=== PATIENT | male | born 1950 | race Two or more races ===

== ENCOUNTER 2022-08-01 17:29 | Inpatient (IN) | payer MEDICARE, MEDICAID ==
[~2022-08-01] VITALS: Ht 185.4 cm; Wt 79.8 kg
[2022-08-01 19:10] LABS: Basophils # (auto) 0.1 10 ^3/uL (0-0.2); Basophils % (auto) 0.8 % (0.0-2.0); Eosinophils # (auto) 0.1 10 ^3/uL (0-0.8); Eosinophils % (auto) 0.7 % (0.0-7.0); Hematocrit 47.4 % (41.0-53.0); Hemoglobin 15.9 g/dL (13.5-17.5); Lymphocytes # (auto) 2.1 10 ^3/uL (0.4-5.4); Lymphocytes % (auto) 18.6 % (10.0-50.0); Mean Corpuscular Hemoglobin 31.9 pg (28.0-32.0); Mean Corpuscular Hgb Conc. 33.6 g/dL (32.0-36.0); Monocytes # (auto) 0.9 10 ^3/uL (0-1.3); Monocytes % (auto) 8.1 % (0.0-12.0); Neutrophils # (auto) 7.9 10 ^3/uL (1.6-8.6); Neutrophils % (auto) 71.8 % (37.0-80.0); Red Blood Cells 4.99 10^6/uL (4.5-5.90); Red Cell Distribution Width 13.2 % (11.8-14.3); White Blood Cell 11.1 10^3/uL (4.4-10.8)
[2022-08-01] MEDS ORDERED: LIDOCAINE VISCOUS 2% 15ML UD PO ONE (19:30)
[2022-08-01] MEDS ORDERED: DONNATAL 5ml ORAL Elix (BELLADONNA ALK-PHENOBARB) PO ONE (19:30)
[2022-08-01] MEDS ORDERED: ALUM & MAG HYDROX-SIMETH LIQ(MAALOX) 30 ML PO ONE (19:30)
[2022-08-01] MEDS ORDERED: SODIUM CHLORIDE 0.9% 1,000 ML IVB ONE (19:30)
[2022-08-01 19:33] LABS: Albumin 3.8 g/dL (3.4-5.0); BUN/Creatinine Ratio 11.9; Calcium 8.9 mg/dL (8.5-10.1); Potassium 3.8 mmol/L (3.5-5.1)
[2022-08-01 19:35] LABS: Bilirubin, Total 0.9 mg/dL (0.2-1.0); Total Protein 8.2 g/dL (6.4-8.2)
[2022-08-01] MEDS ORDERED: SODIUM CHLORIDE 0.9% 1,000 ML IV SCH (22:45)
[2022-08-01] MEDS ORDERED: ONDANSETRON HCL 4 MG/2 ML VIAL IV PRN (22:45)
[2022-08-02 06:08] LABS: Basophils % (auto) 0.1 % (0.0-2.0); Eosinophils % (auto) 0.4 % (0.0-7.0); Lymphocytes % (auto) 19.2 % (10.0-50.0); Monocytes % (auto) 8.9 % (0.0-12.0); Neutrophils % (auto) 71.4 % (37.0-80.0); White Blood Cell 10.9 10^3/uL (4.4-10.8)
[2022-08-02 06:09] LABS: Basophils # (auto) 0 10 ^3/uL (0-0.2); Eosinophils # (auto) 0 10 ^3/uL (0-0.8); Hematocrit 47.1 % (41.0-53.0); Hemoglobin 16.3 g/dL (13.5-17.5); Lymphocytes # (auto) 2.1 10 ^3/uL (0.4-5.4); Mean Corpuscular Hemoglobin 32.9 pg (28.0-32.0); Mean Corpuscular Hgb Conc. 34.6 g/dL (32.0-36.0); Mean Corpuscular Volume 95.3 fL (80.0-100.0); Neutrophils # (auto) 7.8 10 ^3/uL (1.6-8.6); Red Blood Cells 4.94 10^6/uL (4.5-5.90); Red Cell Distribution Width 13.6 % (11.8-14.3)
[2022-08-02 06:10] LABS: Potassium 3.9 mmol/L (3.5-5.1)
[2022-08-02 06:18] LABS: Albumin 3.7 g/dL (3.4-5.0); BUN/Creatinine Ratio 14.2; Calcium 9.1 mg/dL (8.5-10.1)
[2022-08-02 06:23] LABS: Bilirubin, Total 0.8 mg/dL (0.2-1.0)
[2022-08-02] MEDS ORDERED: LOPERAMIDE HCL 2 MG CAP/TAB PO PRN (06:45)
[2022-08-02] MEDS ORDERED: SODIUM CHLORIDE 0.9% 500 ML IV ONE (06:45)
[2022-08-02] MEDS ORDERED: SODIUM CHLORIDE 0.9% 1,000 ML IV SCH (06:45)
[2022-08-02] MEDS: metroNIDAZOLE 500MG/100ML 100 ML IV SCH ×3 (06:59→22:11)
[2022-08-02] MEDS ORDERED: SOD CHL 0.45% 1,000 ML IV SCH (09:15)
[2022-08-02] MEDS ORDERED: GASTROGRAFIN 120 ML SOL ONE (09:40)
[2022-08-02] MEDS: PANTOPRAZOLE 40 MG/10 ML VIAL INJ IV SCH (10:00)
[2022-08-02] MEDS: AMIODARONE 450mg/250ml AE 250 ML IV SCH (10:55)
[2022-08-02] MEDS ORDERED: AMIODARONE HCL 150 MG in D5W 5% 100 ML IV ONE (11:00)
[2022-08-02] MEDS ORDERED: DIGOXIN (250MCG/ML) 2 ML AMPULE IV ONE (11:30)
[2022-08-02 15:11] LABS: Calcium 9.8 mg/dL (8.5-10.1); Potassium 4.2 mmol/L (3.5-5.1)
[2022-08-02 15:13] LABS: BUN/Creatinine Ratio 13.5
[2022-08-02] MEDS: SODIUM BICARBONATE 50ML VIAL 50 ML in SOD CHL 0.45% 1,000 ML IV SCH (15:45)
[2022-08-02] MEDS: MORPHINE SULFATE INJ 2 MG/ml SYRG IV PRN ×2 (17:03→23:47)
[2022-08-02 18:10] LABS: Urine Bacteria MOD /hpf (None Seen); Urine Blood 2+ /uL (Negative); Urine Mucus FEW (None Seen); Urine Specific Gravity 1.015 (1.001-1.035); Urine WBC 10 /hpf (0 - 3)
[2022-08-02 23:00] VITALS: BP 114/75
[2022-08-03] MEDS: AMIODARONE 450mg/250ml AE 250 ML IV SCH ×2 (03:16→16:21)
[2022-08-03] MEDS: MORPHINE SULFATE INJ 2 MG/ml SYRG IV PRN ×2 (04:56→16:11)
[2022-08-03 05:00] VITALS: BP 122/77
[2022-08-03] MEDS: metroNIDAZOLE 500MG/100ML 100 ML IV SCH ×3 (05:34→21:20)
[2022-08-03] MEDS: SODIUM BICARBONATE 50ML VIAL 50 ML in SOD CHL 0.45% 1,000 ML IV SCH ×2 (05:45→08:35)
[2022-08-03 06:36] LABS: BUN/Creatinine Ratio 16.9; Calcium 8.9 mg/dL (8.5-10.1)
[2022-08-03 09:00] VITALS: BP 118/74
[2022-08-03] MEDS: PANTOPRAZOLE 40 MG/10 ML VIAL INJ IV SCH (09:32)
[2022-08-03 13:00] VITALS: BP 134/68
[2022-08-03 16:47] VITALS: BP 122/79
[2022-08-03 21:55] VITALS: BP 110/72
[2022-08-04] MEDS: metroNIDAZOLE 500MG/100ML 100 ML IV SCH ×3 (05:02→21:53)
[2022-08-04 05:12] VITALS: BP 137/74
[2022-08-04 06:29] LABS: BUN/Creatinine Ratio 32.8; Calcium 8.9 mg/dL (8.5-10.1); Potassium 4.1 mmol/L (3.5-5.1)
[2022-08-04] MEDS: AMIODARONE 450mg/250ml AE 250 ML IV SCH (07:55)
[2022-08-04 09:20] VITALS: BP 114/75
[2022-08-04] MEDS: PANTOPRAZOLE 40 MG/10 ML VIAL INJ IV SCH (09:42)
[2022-08-04] MEDS: SODIUM BICARBONATE 50ML VIAL 50 ML in SOD CHL 0.45% 1,000 ML IV SCH ×2 (09:43→23:45)
[2022-08-04 13:00] VITALS: BP 112/72
[2022-08-04] MEDS: MORPHINE SULFATE INJ 2 MG/ml SYRG IV PRN (16:27)
[2022-08-04 16:53] VITALS: BP 118/72
[2022-08-04 22:00] VITALS: BP 128/72
[2022-08-05] MEDS: AMIODARONE 450mg/250ml AE 250 ML IV SCH (04:05)
[2022-08-05 05:00] VITALS: BP 113/68
[2022-08-05] MEDS: metroNIDAZOLE 500MG/100ML 100 ML IV SCH ×3 (06:37→21:27)
[2022-08-05 09:00] VITALS: BP 122/68
[2022-08-05] MEDS: SODIUM BICARBONATE 50ML VIAL 50 ML in SOD CHL 0.45% 1,000 ML IV SCH ×2 (11:07→20:00)
[2022-08-05 13:00] VITALS: BP 114/68
[2022-08-05 17:00] VITALS: BP 116/82
[2022-08-05] MEDS: AMIODARONE HCL 200 MG TAB PO SCH (21:37)
[2022-08-06 00:24] VITALS: BP 108/67
[2022-08-06] MEDS: metroNIDAZOLE 500MG/100ML 100 ML IV SCH (05:20)
[2022-08-06 05:45] VITALS: BP 113/66
[2022-08-06] MEDS: SODIUM BICARBONATE 50ML VIAL 50 ML in SOD CHL 0.45% 1,000 ML IV SCH (05:52)
[2022-08-06 09:05] VITALS: BP 157/108
[2022-08-06] MEDS: AMIODARONE HCL 200 MG TAB PO SCH (09:53)
[2022-08-06] MEDS ORDERED: AMIO200T33 PO (10:32)
[2022-08-06] MEDS ORDERED: METR500T PO (10:32)
== END 2022-08-06 13:22 | disposition home health service (06) | DRG 388 ==
LOC: ER 17:33 → OVERFLOW 22:44 → TELE-WESTW 08-02 21:25
PROVIDERS: ADMIT Nurse Practitioner; ATTEND Family Medicine
PROC: 0D9670Z Drainage of Stomach with Drainage Device, Via Natural or Artificial Opening (ICD-10-PCS; principal; 2022-08-02)
DX: K56.600 Partial intestinal obstruction, unspecified as to cause (principal); R65.11 Systemic inflammatory response syndrome (SIRS) of non-infectious origin with acute organ dysfunction; E87.21 Acute metabolic acidosis; N17.9 Acute kidney failure, unspecified; E86.0 Dehydration; I48.91 Unspecified atrial fibrillation; N18.9 Chronic kidney disease, unspecified; K58.9 Irritable bowel syndrome, unspecified; Z20.822 Contact with and (suspected) exposure to COVID-19
CPT/HCPCS: 36415; 71045; 74018; 74176; 74250; 80048; 80053; 81001; 83605; 83690; 83735; 85025; 85048; 87045; 87177; 87427; 87493; 93005; 93306; 96360; 96361; 97163; C9113; G0378; J2405; J3490; J7060

== ENCOUNTER → 2024-03-19 | Outpatient (CLI) | payer MEDICARE, MEDICAID ==
[~2024-03-19] MED LIST: AMIO200T33 PO; METR500T PO
== END | disposition home or self-care (01) ==
LOC: LAB 13:06
PROVIDERS: ATTEND Urology
DX: R97.20 Elevated prostate specific antigen [PSA] (principal)
CPT/HCPCS: 84153

== ENCOUNTER → 2024-03-20 | Outpatient (CLI) | payer MEDICARE, MEDICAID ==
[2024-03-20 12:24] LABS: Urine Bacteria None Seen /hpf (None Seen); Urine WBC None Seen /hpf (0 - 3)
[2024-03-20 12:52] LABS: Urine Amorphous Crystal MANY /hpf (None Seen); Urine Blood Negative /uL (Negative); Urine Mucus FEW (None Seen); Urine Protein, UAD TRACE (Negative); Urine Specific Gravity 1.024 (1.001-1.035); Urine Urobilinogen Normal (Negative); Urine pH 5.5 (5.0-9.0)
[2024-03-20 12:53] LABS: Urine Clarity Cloudy (Clear); Urine Color Yellow (Yellow)
== END | disposition home or self-care (01) ==
LOC: LAB 12:21
PROVIDERS: ATTEND Urology
DX: N39.0 Urinary tract infection, site not specified (principal)
CPT/HCPCS: 81001

== ENCOUNTER 2024-05-17 08:19 | Day surgery (SDC) | payer OTHER, MEDICAID ==
[2024-05-10 11:58] LABS: Urine Bacteria None Seen /hpf (None Seen)
[2024-05-10 12:15] LABS: Basophils # (auto) 0 10 ^3/uL (0-0.2); Basophils % (auto) 0.4 % (0.0-2.0); Eosinophils # (auto) 0.5 10 ^3/uL (0-0.8); Eosinophils % (auto) 5.7 % (0.0-7.0); Hematocrit 43.8 % (41.0-53.0); Hemoglobin 15.1 g/dL (13.5-17.5); Lymphocytes % (auto) 37.3 % (10.0-50.0); Mean Corpuscular Hemoglobin 33.3 pg (28.0-32.0); Mean Corpuscular Hgb Conc. 34.4 g/dL (32.0-36.0); Mean Corpuscular Volume 96.7 fL (80.0-100.0); Monocytes # (auto) 0.7 10 ^3/uL (0-1.3); Monocytes % (auto) 9.2 % (0.0-12.0); Neutrophils # (auto) 3.8 10 ^3/uL (1.6-8.6); Neutrophils % (auto) 47.4 % (37.0-80.0); Red Blood Cells 4.53 10^6/uL (4.5-5.90); Red Cell Distribution Width 13.6 % (11.8-14.3); Urine Blood Negative /uL (Negative); Urine Clarity Clear (Clear); Urine Color Yellow (Yellow); Urine Mucus FEW (None Seen); Urine Protein, UAD Negative (Negative); Urine Specific Gravity 1.026 (1.001-1.035); Urine Urobilinogen Normal (Negative); Urine WBC 1 /hpf (0 - 3); Urine pH 5.5 (5.0-9.0); White Blood Cell 7.9 10^3/uL (4.4-10.8)
[2024-05-10 12:26] LABS: INR 0.98 (0.9-1.15); Partial Thromboplastin Time 26.5 SEC (24.5-34.5); Prothrombin Time 10.4 sec (9.3-11.8)
[2024-05-10 12:30] LABS: Alanine Aminotransferase 14 U/L (7-40); Albumin 4.4 g/dL (3.2-4.8); Alkaline Phosphatase 80 U/L (46-116); Anion Gap 4 (5-15); Aspartate Aminotransferase 18 U/L (13-40); BUN/Creatinine Ratio 19.7 (10.0-20.0); Blood Urea Nitrogen 23 mg/dL (9-23); Calcium 9.6 mg/dL (8.5-10.1); Carbon Dioxide 25 mmol/L (20-30); Chloride 108 mmol/L (98-107); Glucose 100 mg/dL (74-106); Potassium 4.5 mmol/L (3.5-5.1); Sodium 137 mmol/L (136-145)
[2024-05-10 12:31] LABS: Bilirubin, Total 0.6 mg/dL (0.2-1.0); Total Protein 7.9 g/dL (5.7-8.2)
[~2024-05-17] VITALS: Ht 185.4 cm; Wt 84.4 kg
[~2024-05-17 08:19] MED LIST changes: -AMIO200T33 PO; +BACL20TA PO; +DICY10CA PO; +GABA-1250 PO; +LEVO25CA3 PO; +MESA400C5 PO; -METR500T PO; +PANT40TA2 PO; +SUCR1TAB31 OR; +VALA500T33 PO
[2024-05-17 08:36] VITALS: TEMP 98.4
[2024-05-17] MEDS ORDERED: fentaNYL CITRATE 100 MCG/2 ML VL ONE (09:51)
[2024-05-17] MEDS ORDERED: MIDAZOLAM HCL 2MG/2ML 2ml VIAL (1mg/ml) ONE (09:51)
[2024-05-17] MEDS ORDERED: PROPOFOL 10 MG/ML 20 ML IV ONE ×2 (09:52→10:22)
[2024-05-17] MEDS ORDERED: ONDANSETRON HCL 4 MG/2 ML VIAL ONE (09:52)
[2024-05-17] MEDS ORDERED: LIDOCAINE 2% (LOCAL ANESTH.) PF 5ml SDV ONE (09:52)
[2024-05-17 10:21] VITALS: O2SAT 100
[2024-05-17] MEDS ORDERED: KETAMINE 50mg/ML 1ml syringe ONE (10:21)
[2024-05-17] MEDS ORDERED: ONDANSETRON HCL 4 MG/2 ML VIAL IV ONE (10:30)
[2024-05-17 10:50] VITALS: BP 112/73; PULSE 68; RESP 15; O2SAT 99
== END 2024-05-17 11:40 | disposition home or self-care (01) ==
LOC: GI 08:19
PROVIDERS: ATTEND Internal Medicine Gastroenterology
DX: R19.7 Diarrhea, unspecified (principal); K64.8 Other hemorrhoids; K59.89 Other specified functional intestinal disorders; K29.50 Unspecified chronic gastritis without bleeding; K44.9 Diaphragmatic hernia without obstruction or gangrene; K22.10 Ulcer of esophagus without bleeding; K21.9 Gastro-esophageal reflux disease without esophagitis; K63.89 Other specified diseases of intestine; E03.9 Hypothyroidism, unspecified; J45.909 Unspecified asthma, uncomplicated; Z98.0 Intestinal bypass and anastomosis status; Z90.49 Acquired absence of other specified parts of digestive tract; Z98.890 Other specified postprocedural states
CPT/HCPCS: 36415; 43239; 45380; 80053; 81001; 85025; 85610; 85730; 88305; 88342; J2001; J2250; J2405; J2704; J3010; J7030

== ENCOUNTER 2025-02-04 08:35 | Inpatient (IN) | payer OTHER, MEDICAID ==
[~2025-02-04] VITALS: Ht 165.1 cm; Wt 85.1 kg
[~2025-02-04 08:35] MED LIST changes: +BACL10TA PO; +CHOL4POW33 PO; +GABA-2171 PO
[2025-02-04 09:16] LABS: Urine Bacteria None Seen /hpf (None Seen)
[2025-02-04 09:26] LABS: Urine Blood Negative /uL (Negative); Urine Clarity Clear (Clear); Urine Color Light-Yellow (Yellow); Urine Hyaline Cast FEW /lpf (0 - 2); Urine Mucus FEW (None Seen); Urine Protein, UAD Negative (Negative); Urine Specific Gravity 1.019 (1.001-1.035); Urine Squamous Epithelial Cell None Seen /hpf (<5); Urine Urobilinogen Normal (Negative); Urine WBC 1 /HPF (0-3)
[2025-02-04 10:26] VITALS: PULSE 71; RESP 18; O2SAT 97
--- NOTE | 2025-02-04 10:42 | DVH ---
CT ABDOMEN AND PELVIS WITHOUT CONTRAST CLINICAL HISTORY: abdominal pain TECHNIQUE: Multiple contiguous axial images of the abdomen and pelvis without intravenous contrast. T he images were reformatted degenerate coronal and sagittal reconstructions. All CT scans at this medical facility are performed using dose modulation techniques as appropriate t o a performed exam including the following:Automated exposure control was utilized; adjustment of the MA and/or KV according to patient size; and use of iterative reconstruction technique. Radiation Dose Information: CT Dose: CTDI volume is 8 mGy. Dose-length product is 489 mGy*cm Comparison: [facility] on DOS: 08/02/22 FINDINGS: Evaluation of the abdomen and pelvis is limited without intravenous contrast. The liver, gallbladder, pancreas, kidneys, adrenal glands, and spleen appear within normal limits. There is no gross evidence of abdominal lymphadenopathy. There is no free fluid or free air. The stomach grossly appears unremarkable. There are postsurgical changes in the bowel with anastomoti c sutures in the rectum and likely small bowel anastomotic sutures in the left lower abdomen. There a re no dilated small or large bowel loops. There are calcified atherosclerotic changes in the abdominal aorta. The IVC appears within normal li mits. There is mild prostatomegaly. Bladder is poorly filled limiting evaluation.. There is no gross evide nce of a pelvic mass. There is no free fluid collection. Lung bases are clear. There is no acute osseous abnormality. IMPRESSION: 1. There is no acute process in the abdomen and pelvis. 2. There are postsurgical changes in the bowel with anastomotic sutures in the rectum and likely smal l bowel anastomotic sutures in the left lower abdomen. There are no dilated small or large bowel loop s. 3. Mild prostatomegaly. HS:Y
[2025-02-04 10:48] LABS: Basophils # (auto) 0 10 ^3/uL (0-0.2); Basophils % (auto) 0.4 % (0.0-2.0); Eosinophils # (auto) 0.4 10 ^3/uL (0-0.8); Eosinophils % (auto) 4.1 % (0.0-7.0); Hematocrit 45.5 % (41.0-53.0); Hemoglobin 15.4 g/dL (13.5-17.5); Mean Corpuscular Hemoglobin 33.1 pg (28.0-32.0); Mean Corpuscular Hgb Conc. 33.8 g/dL (32.0-36.0); Mean Corpuscular Volume 97.9 fL (80.0-100.0); Monocytes # (auto) 0.9 10 ^3/uL (0-1.3); Monocytes % (auto) 10.1 % (0.0-12.0); Neutrophils # (auto) 4.4 10 ^3/uL (1.6-8.6); Neutrophils % (auto) 50.4 % (37.0-80.0); Platelet Count (auto) 235 10^3/uL (140-450); Red Blood Cells 4.65 10^6/uL (4.5-5.90); Red Cell Distribution Width 13.9 % (11.8-14.3); White Blood Cell 8.7 10^3/uL (4.4-10.8)
--- NOTE | 2025-02-04 10:49 | ED.PDOC ---
GI ASSESSMENT HPI Comments 75 year old male presents to the ED with a chief complaint of abdominal pain onset 1 month. Patient states he has been experiencing abdominal pain with burning sensation after eating or drinking as well as diarrhea. Patient also noticed loss of appetite for the past month. Denies any PMHx as well as chest pain, shortness of breath, dizziness, weakness, headache, nausea, vomiting, dysuria, hematuria. No other symptoms or modifying factors present at this time. Chief Complaint: Abdominal Pain Time Seen by MD: 10:05 Reviewed Notes: Medications, Allergies Allergies: Coded Allergies: NO KNOWN ALLERGIES (Unverified , 08/01/22) Home Meds Reported Medications Valacyclovir Hcl (Valacyclovir Hcl) 500 Mg Tab, 500 MG PO UD, TAB 05/15/24 Pantoprazole Sodium Sesquihydr (Protonix) 40 Mg Tab, 40 MG PO DAILY, #30 TAB 05/15/24 Dicyclomine Hcl (BENTYL CAPSULE) 10 Mg Cp, 10 MG PO DAILY, CAP 05/15/24 Sucralfate (CARAFATE) 1 Gm Tab, 1 GM OR BID, TAB 05/15/24 Gabapentin (Gabapentin) 300 Mg Cap, 300 MG PO HS, CAP 05/15/24 Baclofen (Baclofen) 20 Mg Tab, 10 MG PO DAILY, TAB 05/15/24 Levothyroxine Sodium (Levothyroxine Sodium) 25 Mcg Cap, 25 MCG PO QAM, CAP 05/15/24 Mesalamine (Mes[address] Dr) 400 Mg Cap, 2 CAP PO QID, CAP 05/15/24 Information Source: Patient Mode of Arrival: Ambulatory Timing: Months Duration: Since onset Prehospital treatment: None Quality: Aching, Burning Severity: Moderate Recent: None Recent Hx of: None Pain Location: Diffuse Modifying Factors: Nothing Associated sign and symptoms: Diarrhea, Abdominal Pain Past Medical History PAST MEDICAL HISTORY: Denies Surgical History: Denies all surgeries Family History Family History: Reviewed,noncontributory to illness Social History Smoker: Non-Smoker Alcohol: Denies ETOH Use Drugs: Denies Drug Use Lives In: Home Constitutional: denies: chills, diaphoresis, fatigue, fever, malaise, sweats, weakness, others EENTM: denies: blurred vision, double vision, ear bleeding, ear discharge, ear drainage, ear pain, ear ringing, eye pain, eye redness, hearing loss, mouth pain, mouth swelling, nasal discharge, nose bleeding, nose congestion, nose pain, photophobia, tearing, throat pain, throat swelling, voice changes, others Respiratory: denies: cough, hemoptysis, orthopnea, SOB at rest, shortness of breath, SOB with excertion, stridor, wheezing, others Cardiovascular: denies: chest pain, dizzy spells, diaphoresis, Dyspnea on exertion, edema, irregular heart beat, left arm pain, lightheadedness, palpitations, PND, syncope, others Gastrointestinal: reports: abdominal pain (burning ), diarrhea, poor appetite; denies: abdomen distended, blood streaked bowels, constipated, dysphagia, dif ficulty swallowing, hematemesis, melena, nausea, poor fluid intake, rectal bleeding, rectal pain, vomiting, others Genitourinary: denies: burning, dysuria, flank pain, frequency, hematuria, incontinence, penile discharge, penile sore, pain, testicle pain, testicle swelling, urgency, others Neurological: denies: dizziness, fainting, headache, left sided numbness, left sided weakness, numbness, paresthesia, pre-existing deficit, right sided numbness, right sided weakness, seizure, speech problems, tingling, tremors, weakness, others Musculoskeletal: denies: back pain, gout, joint pain, joint swelling, muscle pain, muscle stiffness, neck pain, others Integumetry: denies: bruises, change in color, change in hair/nails, dryness, laceration, lesions, lumps, rash, wounds, others Allergic/Immunocompromised: denies: Difficulty Healing, Frequent Infections, Hives, Itching, others Hematologic/Lymphatic: denies: anemia, blood clots, easy bleeding, easy bruising, swollen glands, others Endocrine: denies: excessive hunger, excessive sweating, excessive thirst, excessive urination, flushing, intolerance to cold, intolerance to heat, unexplained weight gain, unexplained weight loss, others Psychiatric: denies: anxiety, bipolar disorder, depression, hopeless, panic disorder, schizophrenia, sleepless, suicidal, others All Other Systems: Reviewed and Negative Physical Exam General Appearance: No Apparent Distress, Normal HEENT: Normal ENT Inspection, Pharynx Normal, TMs Normal Neck: Full Range of Motion, Non-Tender, Normal, Normal Inspection Respiratory: Chest Non-Tender, Lungs Clear, No Accessory Muscle Use, No R espiratory Distress, Normal Breath Sounds Cardiovascular: No Edema, No JVD, No Murmur, No Gallop, Normal Peripheral Pulses, Regular Rate/Rhythm Breast Exam: Deferred Gastrointestinal: No Organomegaly, Non Tender, No Pulsatile Mass, Normal Bowel Sounds, Soft Genitalia: Deferred Pelvic: Deferred Rectal: Deferred Extremities: No calf tenderness, Normal capillary refill, Normal inspection, Normal range of motion, Non-tender, No pedal edema Musculoskeletal : Apperance: Normal Neurologic: Alert, cellar pumper II-XII nml as Tested, No Motor Deficits, Normal Affect, Normal Mood, No Sensory Deficits Cerebellar Function: Normal Reflexes: Normal Skin: Dry, Normal Color, Warm Lymphatic: No Adenopathy Was a procedure done? Was a procedure done?: No GI differential Dx Differential Diagnosis: Gastritis/PUD, Gastroenteritis, Dehydration, Electrolyte Imbalance, Viral X-Ray, Labs, Meds, VS Vital Signs Date Time Temp Pulse Resp B/P (MAP) Pulse Ox O2 Delivery O2 Flow Rate FiO2 02/04/25 10:26 71 18 97 Room Air* 0 21 02/04/25 10:26 97.2 71 18 130/88 (102) 97 97.2 02/04/25 08:55 97.8 73 18 148/51 (83) 97 97.8 Lab Test 02/04/25 10:14 02/04/25 09:05 Range/Units White Blood Count 8.7 4.4-10.8 10^3/uL Red Blood Count 4.65 4.5-5.90 10^6/uL Hemoglobin 15.4 13.5-17.5 g/dL Hematocrit 45.5 41.0-53.0 % Mean Corpuscular Volume 97.9 80.0-100.0 fL Mean Corpuscular Hemoglobin 33.1 H 28.0-32.0 pg Mean Corpuscular Hemoglobin Concent 33.8 32.0-36.0 g/dL Red Cell Distribution Width 13.9 11.8-14.3 % Platelet Count 235 140-450 10^3/uL Mean Platelet Volume 8.2 6.9-10.8 fL Neutrophils (%) (Auto) 50.4 37.0-80.0 % Lymphocytes (%) (Auto) 35.0 10.0-50.0 % Monocytes (%) (Auto) 10.1 0.0-12.0 % Eosinophils (%) (Auto) 4.1 0.0-7.0 % Basophils (%) (Auto) 0.4 0.0-2.0 % Neutrophils # (Auto) 4.4 1.6-8.6 10 ^3/uL Lymphocytes # (Auto) 3.0 0.4-5.4 10 ^3/uL Monocytes # (Auto) 0.9 0-1.3 10 ^3/uL Eosinophils # (Auto) 0.4 0-0.8 10 ^3/uL Basophils # (Auto) 0 0-0.2 10 ^3/uL Nucleated Red Blood Cells 0.0 % Sodium Level 138 136-145 mmol/L Potassium Level 4.3 3.5-5.1 mmol/L Chloride Level 106 98-107 mmol/L Carbon Dioxide Level 25 20-31 mmol/L Anion Gap 7 5-15 Blood Urea Nitrogen 19 9-23 mg/dL Creatinine 1.16 0.700-1.30 mg/dL Glomerular Filtration Rate Calc 65 >90 mL/min BUN/Creatinine Ratio 16.4 10.0-20.0 Serum Glucose 99 74-106 mg/dL Calcium Level 10.1 8.7-10.4 mg/dL Total Bilirubin 0.9 0.2-1.0 mg/dL Aspartate Amino Transferase (AST) 18 13-40 U/L Alanine Aminotransferase (ALT) 13 7-40 U/L Alkaline Phosphatase 76 46-116 U/L Total Protein 8.0 5.7-8.2 g/dL Albumin 4.5 3.2-4.8 g/dL Lipase 28 12-53 U/L Urine Color Light-yellow Yellow Urine Clarity Clear Clear Urine pH 5.0 5.0-9.0 Urine Specific [place] 1.019 1.001-1.035 Urine Protein Negative Negative Urine Ketones Negative Negative Urine Blood Negative Negative /uL Urine Nitrite Negative Negative Urine Bilirubin Negative Negative Urine Urobilinogen Normal Negative mg/dL Urine Leukocyte Esterase Negative Negative /uL Urine RBC 1 0 - 3 /hpf Urine Microscopic WBC 1 0-3 /HPF Urine Squamous Epithelial Cells None seen <5 /hpf Urine Bacteria None seen None Seen /hpf Urine Hyaline Casts Few 0 - 2 /lpf Urine Mucus Few None Seen Urine Glucose Normal Normal mg/dL [facility] [id number] [facility] [address] Ph: [phone] DIAGNOSTIC IMAGING Diagnostic Imaging Report : [id number] Signed PATIENT: GONZÁLEZ MONTELONGO ACCT: [id number] UNIT: [id number] : 1950 LOC: ER ROOM / BED: / AGE / SEX: 75 / M ADM STATUS: REG ER SERVICE 1010 ORDERING PHYSICIAN: JOCELYNE FARIA MD PROCEDURE(s): ABPL - CT AB PEL WO CON-NO ORAL OR IV REASON: abdominal pain ORDER NUMBER(s): [id number], ACCESSION NUMBER(s): [id number] CT ABDOMEN AND PELVIS WITHOUT CONTRAST CLINICAL HISTORY: abdominal pain TECHNIQUE: Multiple contiguous axial images of the abdomen and pelvis without intravenous contrast. The images were reformatted degenerate coronal and sagittal reconstructions. All CT scans at this medical facility are performed using dose modulation techniques as appropriate to a performed exam including the following:Automated exposure control was utilized; adjustment of the MA and/or KV according to patient size; and use of iterative reconstruction technique. Radiation Dose Information: CT Dose: CTDI volume is 8 mGy. Dose-length product is 489 mGy*cm Comparison: [facility] on DOS: 08/02/22 FINDINGS: Evaluation of the abdomen and pelvis is limited without intravenous contrast. The liver, gallbladder, pancreas, kidneys, adrenal glands, and spleen appear w ithin normal limits. There is no gross evidence of abdominal lymphadenopathy. There is no free fluid or free air. The stomach grossly appears unremarkable. There are postsurgical changes in the bowel with anastomotic sutures in the rectum and likely small bowel anastomotic sutures in the left lower abdomen. There are no dilated small or large bowel loops. There are calcified atherosclerotic changes in the abdominal aorta. The IVC appears within normal limits. There is mild prostatomegaly. Bladder is poorly filled limiting evaluation.. There is no gross evidence of a pelvic mass. There is no free fluid collection. Lung bases are clear. There is no acute osseous abnormality. IMPRESSION: 1. There is no acute process in the abdomen and pelvis. 2. There are postsurgical changes in the bowel with anastomotic sutures in the rectum and likely small bowel anastomotic sutures in the left lower abdomen. There are no dilated small or large bowel loops. 3. Mild prostatomegaly. HS:Y ATED BY: SANTY VILLALTA MD DICTATED DATE/TIME: 02/04/251039 SIGNED BY: SANTY VILLALTA MD SIGNED DATE/TIME: 02/04/251039 CC: Time of 1ST Reevaluation: 10:35 Reevaluation 1ST: Unchanged Patient Education/Counseling: Diagnosis, Treatment, Prognosis Family Education/Counseling: No Family Present Additional Information The following tests were ordered, and results were reviewed by me: UA, CBC, CMP, LIPASE, CT AB PEL WO CON I reviewed and agreed with the following test results read by other providers: CT AB PEL WO CON I discussed treatment and results with medical personnel and: Patient Comprehensive systems review obtained and negative except for what is stated in the HPI. Departure 1 Departure Time of Disposition: 12:13 (Patient presented with abdominal pain that was concerning for possible appendicits, gastritis, cholecystitis, colitis, gastroenteritis, sbo, or orther possible surgical emergency. Data: 1. I ordered and reviewed the result of at least 3 labs including a CBC, BMP, and Urinalysis. 2. I independently interpreted the following tests: CT Abdoment and Pelvis is concerning for benign abdomen .Risk:This patient has a high risk of morbidity due to further diagnostic testing or treatment and may suffer from an acute abdominal process disorder. Workup reveals intractable abdominal pain and patient should be admitted for further workup. and possible expert consultation. ) Impression: Primary Impression: Intractable abdominal pain Disposition: ADMITTED INPATIENT Admit to: Med Surg Condition: Serious Critical Care Note Critical Care Time?: Yes Critical care comment: Intractable abdominal pain Authorized and Performed by: Jocelyne Faria MD Total critical care time: Approximately 39 minutes Due to a high probability of clinically significant, life threatening deterioration, the patient required my highest level of preparedness to intervene emergently and I personally spent this critical care time directly and personally managing the patient. This critical care time included obtaining a history; examining the patient; pulse oximetry; ordering and review of studies; arranging urgent treatment with development of a management plan; evaluation of patient's response to treatment; frequent reassessment; and, discussions with other providers. This critical care time was performed to assess and manage the high probability of imminent, life-threatening deterioration that could result in multi-organ failure. It was exclusive of separately billable procedures and treating other patients and teaching time. Please see my other sections and the rest of the note for further information on patient assessment and treatment. Stability Stability form required: No I personally scribed for JOCELYNE FARIA MD ([email or web address]) on 02/04/25 at 10:49. Electronically submitted by Akiko Harden ([email or web address]). I personally scribed for JOCELYNE FARIA MD ([email or web address]) on 02/04/25 at 11:12. Electronically submitted by Akiko Harden ([email or web address]). JOCELYNE FARIA MD Feb 04, 2025 10:49
[2025-02-04 10:57] LABS: Alanine Aminotransferase 13 U/L (7-40); Albumin 4.5 g/dL (3.2-4.8); Alkaline Phosphatase 76 U/L (46-116); Anion Gap 7 (5-15); Aspartate Aminotransferase 18 U/L (13-40); BUN/Creatinine Ratio 16.4 (10.0-20.0); Blood Urea Nitrogen 19 mg/dL (9-23); Calcium 10.1 mg/dL (8.7-10.4); Carbon Dioxide 25 mmol/L (20-31); Chloride 106 mmol/L (98-107); Glucose 99 mg/dL (74-106); Lipase 28 U/L (12-53); Potassium 4.3 mmol/L (3.5-5.1); Sodium 138 mmol/L (136-145)
[2025-02-04 10:58] LABS: Bilirubin, Total 0.9 mg/dL (0.2-1.0)
[2025-02-04] MEDS: ONDANSETRON HCL 4 MG/2 ML VIAL IV ONE (12:46)
[2025-02-04] MEDS: SODIUM CHLORIDE 0.9% 1,000 ML IV ONE (12:46)
[2025-02-04] MEDS: MORPHINE SULFATE 4 MG/ML SYR/VIAL IV ONE (12:49)
[2025-02-04] MEDS: MORPHINE SULFATE 4 MG/ML SYR/VIAL ONE (13:00)
[2025-02-04] MEDS: diphenhdrAMINE HCL 50 MG/1 ML VL IV ONE (13:24)
--- NOTE | 2025-02-04 14:47 | DVHHP2 ---
History of Present Illness Reason for Visit: Abdominal pain History of Present Illness 75-year-old male past medical history area of bowel syndrome AFib SOLE small- bowel obstruction in July 2022 diverticulitis small hiatal hernia esophagitis gastritis ileal colonic anastomosis hypothyroidism chief complaint patient comes in with abdominal pain he has been dealing with it for about a month. The pain is off and on but today the pain got worse he states it is a epigastric a burning pain no tearing sensation in his chest he states eating and drinking makes his pain worse he does have occasional diarrhea but no blood in his. When evaluating patient's meds from home looks like he was on Carafate he is also on Protonix and he also on Bentyl. When evaluating patient's labs and imaging CBC was unremarkable CMP unremarkable UA unremarkable CT scan of the abdomen pelvis just shows a large prostate otherwise unremarkable. Patient had a EGD and colon oscopy with biopsy in May 21, 2024 and that is where it shows small hiatal hernia esophagitis and gastritis we will admit for pain management Past Medical History See HPI above Past Surgical History See HPI above Family History Reviewed, non-contributory to the management of this case. Past Social History The patient lives at home, denies smoking, alcohol or illicit drugs abuse. Review of Systems Constitutional: No: Fever, Chills, Sweats, Weakness, Malaise, Other Eyes: No: Pain, Vision change, Conjunctivae inflammation, Eyelid inflammation, Other, Redness ENT: No: Ear pain, Ear discharge, Nose pain, Nose discharge, Nose congestion, Mouth pain, Mouth swelling, Throat pain, Throat swelling, Other Respiratory: No: Cough, Dry, Shortness of breath, SOB with excertion, Wheezing, Hemoptysis, Pleuritic Pain, Sputum, Wheezing, Other Cardiovascular: No: Chest Pain, Palpitations, Orthopnea, Paroxysmal Noc. Dyspnea, Edema, Lt Headedness, Other Gastrointestinal: Abdominal Pain; No: Nausea, Vomiting, Diarrhea, Constipation, Melena, Hematochezia, Other Genitourinary: No Dysuria, No Frequency, No Incontinence, No Hematuria, No Retention, No Other Musculoskeletal: No: other, neck pain, shoulder pain, arm pain, back pain, hand pain, leg pain, foot pain Skin: No: Rash, Lesions, Jaundice, Bruising, Other Neurological: No: Weakness, Numbness, Incoordination, Change in speech, Confusion, Seizures, Other Allergies: Coded Allergies: NO KNOWN ALLERGIES (Unverified , 08/01/22) Exam Vital Signs Vital Signs Date Time Temp Pulse Resp B/P (MAP) Pulse Ox O2 Delivery O2 Flow Rate FiO2 02/04/25 13:26 63 14 132/55 02/04/25 13:01 98.4 97 98.4 02/04/25 10:26 Room Air* 0 21 General Appearance: Alert, Oriented X3, Cooperative, No acute distress HEENT: Atraumatic, PERRLA, EOMI, Mucous membr. moist/pink Respiratory: Clear to auscultation, Normal air movement Cardiovascular: Regular rate, Normal S1, Normal S2, No murmurs Abdominal: Normal bowel sounds, Soft, No hepatospenomegaly, No masses, Other (no guarding no rebound tenderness) Extremities: No clubbing, No cyanosis, No edema, Normal pulses, No tenderness/swelling Skin: No rashes, No breakdown, No significant lesion Neuro: Normal gait, Normal speech, Strength at 5/5 X4 ext, Normal tone, Sensation intact, Cranial nerves 3-12 NL Psych/Mental Status: Mental status NL, Mood NL Labs/Xrays CT scan abdomen pelvis unremarkable only enlarged prostate I reviewed labs, imaging CT scan abdomen pelvis, EKG and all diagnostic studies on this patient from ED records and the medical chart Labs Test 02/04/25 10:14 02/04/25 09:05 Range/Units White Blood Count 8.7 4.4-10.8 10^3/uL Red Blood Count 4.65 4.5-5.90 10^6/uL Hemoglobin 15.4 13.5-17.5 g/dL Hematocrit 45.5 41.0-53.0 % Mean Corpuscular Volume 97.9 80.0-100.0 fL Mean Corpuscular Hemoglobin 33.1 H 28.0-32.0 pg Mean Corpuscular Hemoglobin Concent 33.8 32.0-36.0 g/dL Red Cell Distribution Width 13.9 11.8-14.3 % Platelet Count 235 140-450 10^3/uL Mean Platelet Volume 8.2 6.9-10.8 fL Neutrophils (%) (Auto) 50.4 37.0-80.0 % Lymphocytes (%) (Auto) 35.0 10.0-50.0 % Monocytes (%) (Auto) 10.1 0.0-12.0 % Eosinophils (%) (Auto) 4.1 0.0-7.0 % Basophils (%) (Auto) 0.4 0.0-2.0 % Neutrophils # (Auto) 4.4 1.6-8.6 10 ^3/uL Lymphocytes # (Auto) 3.0 0.4-5.4 10 ^3/uL Monocytes # (Auto) 0.9 0-1.3 10 ^3/uL Eosinophils # (Auto) 0.4 0-0.8 10 ^3/uL Basophils # (Auto) 0 0-0.2 10 ^3/uL Nucleated Red Blood Cells 0.0 % Sodium Level 138 136-145 mmol/L Potassium Level 4.3 3.5-5.1 mmol/L Chloride Level 106 98-107 mmol/L Carbon Dioxide Level 25 20-31 mmol/L Anion Gap 7 5-15 Blood Urea Nitrogen 19 9-23 mg/dL Creatinine 1.16 0.700-1.30 mg/dL Glomerular Filtration Rate Calc 65 >90 mL/min BUN/Creatinine Ratio 16.4 10.0-20.0 Serum Glucose 99 74-106 mg/dL Calcium Level 10.1 8.7-10.4 mg/dL Total Bilirubin 0.9 0.2-1.0 mg/dL Aspartate Amino Transferase (AST) 18 13-40 U/L Alanine Aminotransferase (ALT) 13 7-40 U/L Alkaline Phosphatase 76 46-116 U/L Total Protein 8.0 5.7-8.2 g/dL Albumin 4.5 3.2-4.8 g/dL Lipase 28 12-53 U/L Urine Color Light-yellow Yellow Urine Clarity Clear Clear Urine pH 5.0 5.0-9.0 Urine Specific [place] 1.019 1.001-1.035 Urine Protein Negative Negative Urine Ketones Negative Negative Urine Blood Negative Negative /uL Urine Nitrite Negative Negative Urine Bilirubin Negative Negative Urine Urobilinogen Normal Negative mg/dL Urine Leukocyte Esterase Negative Negative /uL Urine RBC 1 0 - 3 /hpf Urine Microscopic WBC 1 0-3 /HPF Urine Squamous Epithelial Cells None seen <5 /hpf Urine Bacteria None seen None Seen /hpf Urine Hyaline Casts Few 0 - 2 /lpf Urine Mucus Few None Seen Urine Glucose Normal Normal mg/dL Assessment/Plan Assessment/Plan acute intractable abdominal pain ct scan no acute findings ordered clr liquid advance as tolerated ordered protonix ordered ivf pt had egd/colonscopy in 07/2024 found to have esophagitis gastritis ordered sucralfate qid cont home dose of bently can consider gi if no improvement chronic problems ibs afib no rvr sole diverticulosis small hital hernia esophagitis gastritis sbo in 07/2022 [place] colonic anastomosis fen/ppx clr liquid advance as diet ivf scd no dvt ppx since pt is ambulatory protonix plan admit to medicine Plan discussed with: Patient Date of Service: Feb 04, 2025 Billing Provider: CHELSIE DURBIN DNP Common Visit Codes: 10747-[id number] INP/OBS CARE (HIGH) CHELSIE DURBIN DNP Feb 04, 2025 14:47
[2025-02-04] MEDS ORDERED: MORPHINE SULFATE INJ 2 MG/ml SYRG IV PRN (15:30)
[2025-02-04] MEDS ORDERED: DOCUSATE SOD 100 MG CAP PO PRN (15:30)
[2025-02-04] MEDS ORDERED: ONDANSETRON HCL 4 MG/2 ML VIAL IV PRN (15:30)
[2025-02-04] MEDS ORDERED: NITROGLYCERIN 0.4 MG SL TAB SL PRN (15:30)
[2025-02-04] MEDS: PANTOPRAZOLE 40 MG/10 ML VIAL INJ IV ONE (17:36)
[2025-02-04] MEDS: SODIUM CHLORIDE 0.9% 1,000 ML IV SCH (18:07)
[2025-02-04 21:34] VITALS: BP 146/67; PULSE 78; RESP 20; TEMP 97.6; TEMP 98; O2SAT 93
[2025-02-04] MEDS: GABAPENTIN 300 MG CAP PO SCH (21:53)
[2025-02-04] MEDS: MESALAMINE 400mg Delayed Release Cap PO SCH (22:41)
[2025-02-04] MEDS: SUCRALFATE 1 GM TAB PO SCH (22:41)
[2025-02-05] VITALS (7 sets, daily range): BP systolic 111–127; BP diastolic 66–85; PULSE 56–136; RESP 16–21; TEMP 97.4–98.3; O2SAT 94–98
[2025-02-05] MEDS: LEVOTHYROXINE SODIUM 25 MCG TAB PO SCH (05:24)
[2025-02-05 06:52] LABS: Alanine Aminotransferase 10 U/L (7-40); Albumin 3.9 g/dL (3.2-4.8); Alkaline Phosphatase 64 U/L (46-116); Anion Gap 9 (5-15); Aspartate Aminotransferase 16 U/L (13-40); BUN/Creatinine Ratio 12.7 (10.0-20.0); Bilirubin, Total 0.8 mg/dL (0.2-1.0); Blood Urea Nitrogen 14 mg/dL (9-23); Calcium 9.5 mg/dL (8.7-10.4); Carbon Dioxide 24 mmol/L (20-31); Glucose 84 mg/dL (74-106); Potassium 3.9 mmol/L (3.5-5.1); Sodium 140 mmol/L (136-145); Total Protein 6.8 g/dL (5.7-8.2)
[2025-02-05 06:59] LABS: Chloride 107 mmol/L (98-107)
[2025-02-05 07:09] LABS: Basophils # (auto) 0 10 ^3/uL (0-0.2); Basophils % (auto) 0.5 % (0.0-2.0); Eosinophils # (auto) 0.4 10 ^3/uL (0-0.8); Eosinophils % (auto) 6.3 % (0.0-7.0); Hematocrit 39.7 % (41.0-53.0); Hemoglobin 13.8 g/dL (13.5-17.5); Lymphocytes # (auto) 1.9 10 ^3/uL (0.4-5.4); Lymphocytes % (auto) 29.4 % (10.0-50.0); Mean Corpuscular Hemoglobin 33.8 pg (28.0-32.0); Mean Corpuscular Hgb Conc. 34.9 g/dL (32.0-36.0); Monocytes # (auto) 0.8 10 ^3/uL (0-1.3); Neutrophils # (auto) 3.4 10 ^3/uL (1.6-8.6); Neutrophils % (auto) 51.8 % (37.0-80.0); Platelet Count (auto) 208 10^3/uL (140-450); Red Blood Cells 4.09 10^6/uL (4.5-5.90); Red Cell Distribution Width 13.8 % (11.8-14.3); White Blood Cell 6.5 10^3/uL (4.4-10.8)
[2025-02-05] MEDS: PANTOPRAZOLE 40 MG/10 ML VIAL INJ IV SCH (09:46)
[2025-02-05] MEDS: DICYCLOMINE HCL 10 MG CAP PO SCH (09:48)
[2025-02-05 10:44] LABS: Hepatitis B Surface Antigen Negative (Negative); Hepatitis C Antibody Negative (Negative)
--- NOTE | 2025-02-05 11:57 | DVHPN2 ---
Subjective The patient is seen and examined at bedside. No complaint today. Reviewed: Care Plan, H&P, Labs, Medications, Previous Orders, Radiology Changes from previous H/P or p: No Changes Eyes: No Pain, No Vision change, No Conjunctivae inflammation, No Eyelid inflammation, No Other, No Redness ENT: No Ear pain, No Ear discharge, No Nose pain, No Nose discharge, No Nose congestion, No Mouth pain, No Mouth swelling, No Throat pain, No Throat swelling, No Other Cardiovascular: No Chest Pain, No Palpitations, No Orthopnea, No Paroxysmal Noc. Dyspnea, No Edema, No Lt Headedness, No Other Respiratory: No Cough, No Dry, No Shortness of breath, No SOB with excertion, No Wheezing, No Hemoptysis, No Pleuritic Pain, No Sputum, No Other Gastrointestinal: No Nausea, No Vomiting; Abdominal Pain; No Diarrhea, No Constipation, No Melena, No Hematochezia, No Other Genitourinary: No Dysuria, No Frequency, No Incontinence, No Hematuria, No Retention, No Other Musculoskeletal: No other, No neck pain, No shoulder pain, No arm pain, No back pain, No hand pain, No leg pain, No foot pain Skin: No Rash, No Lesions, No Jaundice, No Bruising, No Other Objective Vitals Vital Signs Date Time Temp Pulse Resp B/P (MAP) Pulse Ox O2 Delivery O2 Flow Rate FiO2 02/05/25 09:00 97.7 69 16 112/72 (85) 94 97.7 02/05/25 08:00 Room Air* 0 21 Intake/Output Intake and Output 02/05/25 07:00 Intake Total 2530 ml Balance 2530 ml Intake Oral 900 ml IV Total 1630 ml # Voids 4 General Appearance: Alert, Oriented X3, Cooperative, No acute distress HEENT: Atraumatic, PERRLA, EOMI, Mucous membr. moist/pink Neck: Supple Lungs: Clear to auscultation, Normal air movement Cardiovascular: Regular rate, Normal S1, Normal S2, No murmurs, Gallops, Rubs Abdomen: Normal bowel sounds, Soft, No tenderness Neuro: Cranial nerves 3-12 NL Psych/Mental Status: Mental status NL Medications Current Medications Medications Dose Ordered Sig/Bam Route Start Time Stop Time Status Last Admin Dose Admin Sodium Chloride 1,000 ml @ 70 mls/hr [id number] IV 02/04/25 15:30 02/04/25 21:53 70 MLS/HR Ondansetron HCl 4 mg Q4HP PRN IV 02/04/25 15:30 Docusate Sodium 100 mg BIDPRN PRN PO 02/04/25 15:30 Morphine Sulfate 2 mg Q4HPRN PRN IV 02/04/25 15:30 Nitroglycerin 0.4 mg Q5MINP PRN SL 02/04/25 15:30 Dicyclomine HCl 10 mg DAILY PO 02/05/25 10:00 02/05/25 09:48 10 MG Gabapentin 300 mg HS PO 02/04/25 22:00 02/04/25 21:53 300 MG Mesalamine 400 mg QID PO 02/04/25 18:00 02/05/25 11:38 400 MG Sucralfate 1 gm QID PO 02/04/25 18:00 02/05/25 11:38 1 GM Levothyroxine Sodium 25 mcg QAM PO 02/05/25 07:00 02/05/25 05:24 25 MCG Pantoprazole Sodium 40 mg DAILY IV 02/05/25 10:00 02/05/25 09:46 40 MG Laboratory Results Laboratory Tests 02/05/25 05:06 Chemistry Test 02/05/25 05:06 Albumin 3.9 g/dL (3.2-4.8) Calcium Level 9.5 mg/dL (8.7-10.4) Total Protein 6.8 g/dL (5.7-8.2) LFT Test 02/05/25 05:06 Alanine Aminotransferase (ALT) 10 U/L (7-40) Alkaline Phosphatase 64 U/L (46-116) Aspartate Amino Transferase (AST) 16 U/L (13-40) Total Bilirubin 0.8 mg/dL (0.2-1.0) Urinalysis Test 02/04/25 09:05 Urine Color Light-yellow (Yellow) Urine Clarity Clear (Clear) Urine pH 5.0 (5.0-9.0) Urine Specific [place] 1.019 (1.001-1.035) Urine Protein Negative (Negative) Urine Ketones Negative (Negative) Urine Blood Negative /uL (Negative) Urine Nitrite Negative (Negative) Urine Bilirubin Negative (Negative) Urine Urobilinogen Normal mg/dL (Negative) Urine Leukocyte Esterase Negative /uL (Negative) Urine RBC 1 /hpf (0 - 3) Urine Microscopic WBC 1 /HPF (0-3) Urine Squamous Epithelial Cells None seen /hpf (<5) Urine Bacteria None seen /hpf (None Seen) Urine Hyaline Casts Few /lpf (0 - 2) Urine Mucus Few (None Seen) Urine Glucose Normal mg/dL (Normal) Labs and/or images reviewed: Labs reviewed by me Assessment/Plan Assessment/Plan acute intractable abdominal pain ct scan no acute findings ordered clr liquid advance as tolerated ordered protonix ordered ivf pt had egd/colonscopy in 07/2024 found to have esophagitis gastritis Continuing sucralfate qid cont home dose of bently chronic problems ibs afib no rvr javi diverticulosis small hital hernia esophagitis gastritis sbo in 07/2022 [place] colonic anastomosis Continuing current management. Continuing with sucralfate and Bentyl. GI consulted. Plan discussed with: Patient Date of Service: Feb 05, 2025 Billing Provider: DARREN VALDOVINOS MD Common Visit Codes: [id number] INP/OBS CARE(HIGH) DARREN VALDOVINOS MD Feb 05, 2025 11:57
--- NOTE | 2025-02-05 22:29 | DVHINCON2 ---
Date of service: Feb 05, 2025 Referring Physician Geri Mann Reason for Consultation Abdominal pain History of Present Illness Operative Report DATE OF OPERATION: 05/17/24 PROCEDURE: Upper Endoscopy with biopsy. PREOPERATIVE INDICATION: The patient is a 74 -year-old male undergoing endoscopy for chronic GERD POSTOPERATIVE DIAGNOSES: 1. 1 cm sliding-type hiatal hernia with slightly irregular squamocolumnar junction minimal grade a erosive esophagitis 2. Minimal gastritis PROCEDURE PERFORMED BY: Adrian Murillo Family History: Patient reports no known family medical history. Allergies: Coded Allergies: NO KNOWN ALLERGIES (Unverified , 08/01/22) Home Meds Reported Medications Cholestyramine (Cholestyramine) 4 Gm Pow, 1 PKT PO BID for 60 Days, #120 02/05/25 Gabapentin (Gabapentin) 600 Mg Tab, 1 TAB PO BID for 30 Days, #60 02/05/25 Baclofen (Baclofen) 10 Mg Tab, 1 TAB PO HS PRN for TENSION HEADACHE for 30 Days, #30 02/05/25 Valacyclovir Hcl (Valacyclovir Hcl) 500 Mg Tab, 500 MG PO UD, TAB 05/15/24 Pantoprazole Sodium Sesquihydr (Protonix) 40 Mg Tab, 1 TAB PO DAILY for 30 Days, #30 05/15/24 Dicyclomine Hcl (BENTYL CAPSULE) 10 Mg Cp, 1 CAP PO BID for SCIATICA for 30 Days, #60 05/15/24 Sucralfate (CARAFATE) 1 Gm Tab, 1 GM OR BID, TAB 05/15/24 Levothyroxine Sodium (Levothyroxine Sodium) 25 Mcg Cap, 25 MCG PO QAM, CAP 05/15/24 Mesalamine (Mesalamine Dr) 400 Mg Cap, 2 CAP PO QID, CAP 05/15/24 Discontinued Reported Medications Gabapentin (Gabapentin) 300 Mg Cap, 300 MG PO HS, CAP 05/15/24 Baclofen (Baclofen) 20 Mg Tab, 10 MG PO DAILY, TAB 05/15/24 Current Medications Current Medications Medications (Trade) Dose Ordered Sig/Bam Route PRN Reason Start Time Stop Time Status Last Admin Dicyclomine HCl (Bentyl Capsule) 10 mg DAILY PO 02/05/25 10:00 02/05/25 09:48 Levothyroxine Sodium (Synthroid Tablet) 25 mcg QAM PO 02/05/25 07:00 02/05/25 05:24 Pantoprazole Sodium (Protonix) 40 mg DAILY IV 02/05/25 10:00 02/05/25 09:46 Review of Systems Operative Report DATE OF OPERATION: 05/17/24 PROCEDURE: Colonoscopy with biopsy. PREOPERATIVE INDICATION: The patient is a 74 -year-old male undergoing colonoscopy for screening and evaluation with history of diarrhea and previous history of colon resection for diverticulitis POSTOPERATIVE DIAGNOSES: 1. Patient appears to have had a subtotal colectomy with a small rectosigmoid remnant 2. There was ileocolonic anastomosis at about 10-15 cm above the anal verge and both the efferent and afferent loops were evaluated 3. Minimal hyperemia ulceration at the ileocolonic anastomosis from which biopsies were obtained 4. Distal 20-30 cm of the ileum or small bowel were normal Vital Signs Vital Signs Date Time Temp Pulse Resp B/P (MAP) Pulse Ox O2 Delivery O2 Flow Rate FiO2 02/05/25 21:00 97.4 70 18 127/76 (93) 95 97.4 02/05/25 08:00 Room Air* 0 21 Labs/Diagnostic Data Labs Test 02/05/25 05:06 02/04/25 10:14 02/04/25 09:05 Range/Units White Blood Count 6.5 # 4.4-10.8 10^3/uL Red Blood Count 4.09 L 4.5-5.90 10^6/uL Hemoglobin 13.8 13.5-17.5 g/dL Hematocrit 39.7 #L 41.0-53.0 % Mean Corpuscular Volume 97.0 80.0-100.0 fL Mean Corpuscular Hemoglobin 33.8 H 28.0-32.0 pg Mean Corpuscular Hemoglobin Concent 34.9 32.0-36.0 g/dL Red Cell Distribution Width 13.8 11.8-14.3 % Platelet Count 208 140-450 10^3/uL Mean Platelet Volume 8.4 6.9-10.8 fL Neutrophils (%) (Auto) 51.8 37.0-80.0 % Lymphocytes (%) (Auto) 29.4 10.0-50.0 % Monocytes (%) (Auto) 12.0 0.0-12.0 % Eosinophils (%) (Auto) 6.3 0.0-7.0 % Basophils (%) (Auto) 0.5 0.0-2.0 % Neutrophils # (Auto) 3.4 1.6-8.6 10 ^3/uL Lymphocytes # (Auto) 1.9 0.4-5.4 10 ^3/uL Monocytes # (Auto) 0.8 0-1.3 10 ^3/uL Eosinophils # (Auto) 0.4 0-0.8 10 ^3/uL Basophils # (Auto) 0 0-0.2 10 ^3/uL Nucleated Red Blood Cells 0.0 % Sodium Level 140 136-145 mmol/L Potassium Level 3.9 3.5-5.1 mmol/L Chloride Level 107 98-107 mmol/L Carbon Dioxide Level 24 20-31 mmol/L Anion Gap 9 5-15 Blood Urea Nitrogen 14 9-23 mg/dL Creatinine 1.10 0.700-1.30 mg/dL Glomerular Filtration Rate Calc 69 >90 mL/min BUN/Creatinine Ratio 12.7 10.0-20.0 Serum Glucose 84 74-106 mg/dL Calcium Level 9.5 8.7-10.4 mg/dL Total Bilirubin 0.8 0.2-1.0 mg/dL Aspartate Amino Transferase (AST) 16 13-40 U/L Alanine Aminotransferase (ALT) 10 7-40 U/L Alkaline Phosphatase 64 46-116 U/L Total Protein 6.8 5.7-8.2 g/dL Albumin 3.9 3.2-4.8 g/dL Hepatitis B Surface Antigen Negative Negative Hepatitis C Antibody Negative Negative Lipase 28 12-53 U/L Urine Color Light-yellow Yellow Urine Clarity Clear Clear Urine pH 5.0 5.0-9.0 Urine Specific [place] 1.019 1.001-1.035 Urine Protein Negative Negative Urine Ketones Negative Negative Urine Blood Negative Negative /uL Urine Nitrite Negative Negative Urine Bilirubin Negative Negative Urine Urobilinogen Normal Negative mg/dL Urine Leukocyte Esterase Negative Negative /uL Urine RBC 1 0 - 3 /hpf Urine Microscopic WBC 1 0-3 /HPF Urine Squamous Epithelial Cells None seen <5 /hpf Urine Bacteria None seen None Seen /hpf Urine Hyaline Casts Few 0 - 2 /lpf Urine Mucus Few None Seen Urine Glucose Normal Normal mg/dL CT SCAN ABD PELVIS IMPRESSION: 1. There is no acute process in the abdomen and pelvis. 2. There are postsurgical changes in the bowel with anastomotic sutures in the rectum and likely small bowel anastomotic sutures in the left lower abdomen. There are no dilated small or large bowel loops. 3. Mild prostatomegaly. Problems(with codes): (1) Abdominal pain Plan/Recommendation Assessment and plan Patient likely has chronic abdominal pain due to postsurgical changes At this time there was no evidence of a bowel obstruction Patient's abdominal pain has resolved he is feeling better Patient has had a recent endoscopy and colonoscopy within the last year and the results are noted Patient is cleared for discharge from GI point of view at this time he can advance diet as tolerated follow up outpatient follow up with me in 4-6 weeks to discuss further management Plan discussed with: Patient ADRIAN MURILLO MD Feb 05, 2025 22:29
[2025-02-06 01:00] VITALS: BP 175/79; PULSE 67; RESP 19; TEMP 97.6; O2SAT 95
[2025-02-06 05:00] VITALS: BP 121/78; PULSE 74; RESP 18; TEMP 98.3; O2SAT 98
[2025-02-06 08:00] VITALS: PULSE 95; RESP 18; O2SAT 95
[2025-02-06 08:34] VITALS: BP 133/85; PULSE 66; RESP 18; TEMP 97.7; O2SAT 95
--- NOTE | 2025-02-06 11:47 | DVHPN2 ---
Eyes: No Pain, No Vision change, No Conjunctivae inflammation, No Eyelid inflammation, No Other, No Redness ENT: No Ear pain, No Ear discharge, No Nose pain, No Nose discharge, No Nose congestion, No Mouth pain, No Mouth swelling, No Throat pain, No Throat swelling, No Other Cardiovascular: No Chest Pain, No Palpitations, No Orthopnea, No Paroxysmal Noc. Dyspnea, No Edema, No Lt Headedness, No Other Respiratory: No Cough, No Dry, No Shortness of breath, No SOB with excertion, No Wheezing, No Hemoptysis, No Pleuritic Pain, No Sputum, No Other Gastrointestinal: No Nausea, No Vomiting; Abdominal Pain; No Diarrhea, No Constipation, No Melena, No Hematochezia, No Other Genitourinary: No Dysuria, No Frequency, No Incontinence, No Hematuria, No Retention, No Other Musculoskeletal: No other, No neck pain, No shoulder pain, No arm pain, No back pain, No hand pain, No leg pain, No foot pain Skin: No Rash, No Lesions, No Jaundice, No Bruising, No Other Objective Vitals Vital Signs Date Time Temp Pulse Resp B/P (MAP) Pulse Ox O2 Delivery O2 Flow Rate FiO2 02/06/25 08:34 97.7 66 18 133/85 (101) 95 97.7 02/06/25 08:00 Room Air* 0 21 Intake/Output Intake and Output 02/06/25 07:00 Intake Total 2395 ml Output Total 3 ml Balance 2392 ml Intake Oral 1625 ml IV Total 770 ml Output Urine Total 3 ml # Voids 3 # Bowel Movements 2 Medications Current Medications Medications Dose Ordered Sig/Bam Route Start Time Stop Time Status Last Admin Dose Admin Sodium Chloride 1,000 ml @ 70 mls/hr [id number] IV 02/04/25 15:30 02/05/25 20:06 70 MLS/HR Ondansetron HCl 4 mg Q4HP PRN IV 02/04/25 15:30 Docusate Sodium 100 mg BIDPRN PRN PO 02/04/25 15:30 Morphine Sulfate 2 mg Q4HPRN PRN IV 02/04/25 15:30 Nitroglycerin 0.4 mg Q5MINP PRN SL 02/04/25 15:30 Dicyclomine HCl 10 mg DAILY PO 02/05/25 10:00 02/06/25 09:50 10 MG Gabapentin 300 mg HS PO 02/04/25 22:00 02/05/25 22:49 300 MG Mesalamine 400 mg QID PO 02/04/25 18:00 02/06/25 06:55 400 MG Sucralfate 1 gm QID PO 02/04/25 18:00 02/06/25 06:55 1 GM Levothyroxine Sodium 25 mcg QAM PO 02/05/25 07:00 02/06/25 06:55 25 MCG Pantoprazole Sodium 40 mg DAILY IV 02/05/25 10:00 02/06/25 09:49 40 MG Laboratory Results Laboratory Tests 02/05/25 05:06 Urinalysis Test 02/04/25 09:05 Urine Color Light-yellow (Yellow) Urine Clarity Clear (Clear) Urine pH 5.0 (5.0-9.0) Urine Specific [place] 1.019 (1.001-1.035) Urine Protein Negative (Negative) Urine Ketones Negative (Negative) Urine Blood Negative /uL (Negative) Urine Nitrite Negative (Negative) Urine Bilirubin Negative (Negative) Urine Urobilinogen Normal mg/dL (Negative) Urine Leukocyte Esterase Negative /uL (Negative) Urine RBC 1 /hpf (0 - 3) Urine Microscopic WBC 1 /HPF (0-3) Urine Squamous Epithelial Cells None seen /hpf (<5) Urine Bacteria None seen /hpf (None Seen) Urine Hyaline Casts Few /lpf (0 - 2) Urine Mucus Few (None Seen) Urine Glucose Normal mg/dL (Normal) Assessment/Plan My Orders Orders - DARREN VALDOVINOS MD Procedure Category Date Status Time * [facility] CONS 02/05/25 Transmitted 14:09 DARREN VALDOVINOS MD Feb 06, 2025 11:47
--- NOTE | 2025-02-06 11:49 | DVHDS2 ---
Discharge Summary Date of Admission Feb 04, 2025 at 15:28 Date of Discharge: Feb 06, 2025 Admitting Diagnosis Acute intractable abdominal pain Irritable bowel syndrome Afib Acute kidney injury diverticulosis small hital hernia esophagitis gastritis sbo in 07/2022 [place] colonic anastomosis Labs/Diagnostic Data: Laboratory Results Test 02/05/25 05:06 02/04/25 10:14 02/04/25 09:05 White Blood Count 6.5 10^3/uL (4.4-10.8) Red Blood Count 4.09 10^6/uL (4.5-5.90) Hemoglobin 13.8 g/dL (13.5-17.5) Hematocrit 39.7 % (41.0-53.0) Mean Corpuscular Volume 97.0 fL (80.0-100.0) Mean Corpuscular Hemoglobin 33.8 pg (28.0-32.0) Mean Corpuscular Hemoglobin Concent 34.9 g/dL (32.0-36.0) Red Cell Distribution Width 13.8 % (11.8-14.3) Platelet Count 208 10^3/uL (140-450) Mean Platelet Volume 8.4 fL (6.9-10.8) Neutrophils (%) (Auto) 51.8 % (37.0-80.0) Lymphocytes (%) (Auto) 29.4 % (10.0-50.0) Monocytes (%) (Auto) 12.0 % (0.0-12.0) Eosinophils (%) (Auto) 6.3 % (0.0-7.0) Basophils (%) (Auto) 0.5 % (0.0-2.0) Neutrophils # (Auto) 3.4 10 ^3/uL (1.6-8.6) Lymphocytes # (Auto) 1.9 10 ^3/uL (0.4-5.4) Monocytes # (Auto) 0.8 10 ^3/uL (0-1.3) Eosinophils # (Auto) 0.4 10 ^3/uL (0-0.8) Basophils # (Auto) 0 10 ^3/uL (0-0.2) Nucleated Red Blood Cells 0.0 % Sodium Level 140 mmol/L (136-145) Potassium Level 3.9 mmol/L (3.5-5.1) Chloride Level 107 mmol/L (98-107) Carbon Dioxide Level 24 mmol/L (20-31) Anion Gap 9 (5-15) Blood Urea Nitrogen 14 mg/dL (9-23) Creatinine 1.10 mg/dL (0.700-1.30) Glomerular Filtration Rate Calc 69 mL/min (>90) BUN/Creatinine Ratio 12.7 (10.0-20.0) Serum Glucose 84 mg/dL (74-106) Calcium Level 9.5 mg/dL (8.7-10.4) Total Bilirubin 0.8 mg/dL (0.2-1.0) Aspartate Amino Transferase (AST) 16 U/L (13-40) Alanine Aminotransferase (ALT) 10 U/L (7-40) Alkaline Phosphatase 64 U/L (46-116) Total Protein 6.8 g/dL (5.7-8.2) Albumin 3.9 g/dL (3.2-4.8) Hepatitis B Surface Antigen Negative (Negative) Hepatitis C Antibody Negative (Negative) Lipase 28 U/L (12-53) Urine Color Light-yellow (Yellow) Urine Clarity Clear (Clear) Urine pH 5.0 (5.0-9.0) Urine Specific [place] 1.019 (1.001-1.035) Urine Protein Negative (Negative) Urine Ketones Negative (Negative) Urine Blood Negative /uL (Negative) Urine Nitrite Negative (Negative) Urine Bilirubin Negative (Negative) Urine Urobilinogen Normal mg/dL (Negative) Urine Leukocyte Esterase Negative /uL (Negative) Urine RBC 1 /hpf (0 - 3) Urine Microscopic WBC 1 /HPF (0-3) Urine Squamous Epithelial Cells None seen /hpf (<5) Urine Bacteria None seen /hpf (None Seen) Urine Hyaline Casts Few /lpf (0 - 2) Urine Mucus Few (None Seen) Urine Glucose Normal mg/dL (Normal) Other Laboratory Tests 02/05/25 05:06 Brief Hx & Hospital Course: This is a 75 years old male with past medical history bowel syndrome, atrial fibrillation, acute kidney injury, small-bowel obstruction in 2021, history of diverticulitis, hiatal hernia, esophagitis, gastritis, ileal colonic anastomosis, hypothyroidism come into emergency department because severe abdominal pain. Patient said he had been doing it for a month on and off. The patient pain get worse. He feels like is epigastric area and is have a burning pain with tearing sensation. Eating or drinking make the pain worse. The patient is taking Carafate and Protonix and also Bentyl. The patient's CT scan abdomen pelvis is unremarkable. No bowel obstruction. The patient does have a large prostate however other than that his CT abdomen pelvis remained unremarkable. The patient recently had EGD and colonoscopy done with biopsy in May 21, 2024 which normal. The patient's pain is not controlled well so Dr. Osorio, GI specialist was consulted. Her impression is his pain is postop pain and she recommend him to follow up as outpatient in her clinic for further manage month of his chronic pain from surgery. So today the patient is able to tolerate his diet. He pass flatus. His abdominal pain is minimal. I am going to discharge him home. Advised him to follow up with Dr. Osorio, GI specialist per schedule. Follow up with his primary care physician 1-2 weeks. Activity as tolerated. Diet per home diet. Physical exam: HEENT: Normocephalic atraumatic pupils equal react to light and accommodation. Extraocular muscles intact, conjunctiva pink, oropharynx moist, no thrush, no exudate. Lymphatic: No lymphadenopathy Cardiovascular exam: S1, S2 was heard. No murmurs, rubs, gallops Lung: Clear on auscultation bilaterally, no wheeze, rale, rhonchi. GI: Abdominal soft, nondistended, nontenderness, positive bowel sounds. Extremity: No crepitus, cyanosis, edema. Pedal pulses present bilateral. Full range of motion. Skin: Normal turgor, no rash. Psych: Alert, oriented x3. Neurology: No focal deficits, cranial nerve II to XII grossly intact. This medical document was created using an electronic medical record system with [employer] direct computerized dictation system. Although this document has been carefully reviewed, there may still be some phonetic and typographical errors. These areas are purely typographical due to imperfections of the software programs, and do not reflect any compromise in the patient's medical care. Condition at Discharge: Stable Final Diagnosis/Problems List Acute intractable abdominal pain Irritable bowel syndrome Afib Acute kidney injury diverticulosis small hital hernia esophagitis gastritis sbo in 07/2022 [place] colonic anastomosis Discharge Disposition: Home Discharge Instruct/Medications Diet: Cardiac 2g Na,low cholest Activity: No Restrictions, As Tolerated Follow Up/Referral: pcp 1-2 weeks gi, DR Osorio per schedule Discharge Statement: "Patient was advised to return to the ER or call 911 if any headaches, dizziness, shortness of breath, chest pain, abdominal pain, bleeding, fevers, or worsening of medical condition. Patient was counseled about treatment plan, medications, possible side effects, patientverbalized understanding. All questions were answered to the best of my ability. This discharge took greater then 30 minutes in planning, reviewing documentation, counseling the patient, and discussing with other team members." ASSESSMENT ASSESSMENT Assessment abdominal pain Date of Service: Feb 06, 2025 Billing Provider: DARREN VALDOVINOS MD Common Visit Codes: [id number] DISCH DAY >30min DARREN VALDOVINOS MD Feb 06, 2025 11:49
[2025-02-06 13:21] VITALS: BP 133/85; PULSE 66; RESP 18; TEMP 97.7; O2SAT 95
[2025-02-06 13:49] VITALS: BP 124/79; PULSE 71; RESP 18; TEMP 97.6; O2SAT 98
== END 2025-02-06 14:24 | disposition home or self-care (01) | DRG 392 ==
LOC: ER 08:35 → OVERFLOW 15:28 → EAST 15:37
PROVIDERS: ADMIT Internal Medicine; ATTEND Internal Medicine
DX: K58.9 Irritable bowel syndrome, unspecified (principal); N17.9 Acute kidney failure, unspecified; I48.91 Unspecified atrial fibrillation; E03.9 Hypothyroidism, unspecified; G89.29 Other chronic pain; K21.9 Gastro-esophageal reflux disease without esophagitis; K57.30 Diverticulosis of large intestine without perforation or abscess without bleeding; Z79.899 Other long term (current) drug therapy
CPT/HCPCS: 36415; 74176; 80053; 81001; 83690; 85025; 86803; 87340; 96361; 96374; 96375; 99291; G0378; J2405; J2470

== ENCOUNTER 2025-07-29 09:26 | Outpatient (CLI) | payer OTHER, MEDICAID ==
[~2025-07-29 09:26] MED LIST changes: -BACL20TA PO; -GABA-1250 PO
[2025-07-29 10:36] LABS: Hematocrit 43.1 % (41.0-53.0); Hemoglobin 14.9 g/dL (13.5-17.5); Mean Corpuscular Hemoglobin 32.8 pg (28.0-32.0); Mean Corpuscular Volume 94.9 fL (80.0-100.0); Nucleated Red Blood Cells % 0.0 %
[2025-07-29 10:43] LABS: Urine Protein, UAD Negative (Negative)
[2025-07-29 11:19] LABS: Prostate Specific Antigen 1.25 ng/mL (0.0-4.0)
[2025-07-29 11:22] LABS: Alanine Aminotransferase 13 U/L (7-40); Alkaline Phosphatase 79 U/L (46-116); Anion Gap 10 (5-15); BUN/Creatinine Ratio 13.7 (10.0-20.0); Blood Urea Nitrogen 17 mg/dL (9-23); Calcium 9.7 mg/dL (8.7-10.4); Carbon Dioxide 28 mmol/L (20-31); Chloride 103 mmol/L (98-107); Glucose 95 mg/dL (74-106); Potassium 4.5 mmol/L (3.5-5.1); Sodium 141 mmol/L (136-145); Triglycerides 113 mg/dL (< 150)
[2025-07-29 11:23] LABS: Albumin 4.5 g/dL (3.2-4.8); Cholesterol 174 mg/dL (< 200); Free T4 (Free Thyroxine) 1.16 ng/dL (0.89-1.76); HDL Cholesterol 57 mg/dL (40-59)
[2025-07-29 11:24] LABS: Bilirubin, Total 0.8 mg/dL (0.2-1.0)
[2025-07-29 11:34] LABS: Total Protein 8.5 g/dL (5.7-8.2)
== END 2025-07-29 17:00 | disposition home or self-care (01) ==
LOC: LAB 09:26
PROVIDERS: ATTEND Student in an Organized Health Care Education/Training Program
DX: N40.0 Benign prostatic hyperplasia without lower urinary tract symptoms (principal); E55.9 Vitamin D deficiency, unspecified; E03.9 Hypothyroidism, unspecified; R73.9 Hyperglycemia, unspecified; R03.0 Elevated blood-pressure reading, without diagnosis of hypertension
CPT/HCPCS: 36415; 80053; 80061; 81001; 82306; 83036; 84153; 84439; 84443; 85025